=== PATIENT | female | born 1995 | race Two or more races ===

== ENCOUNTER 2021-11-28 10:15 | Emergency (ER) | payer SELFPAY ==
[2021-11-28] MEDS ORDERED: Acetaminophen 500 MG Tab PO ONE (10:54)
[2021-11-28] MEDS ORDERED: Morphine 2 MG/ML SYRINGE IVPUSH ONE (10:55)
[2021-11-28 11:01] LABS: BLOOD UREA NITROGEN,BUN 7 mg/dL (7.0-18.0); CARBON DIOXIDE,CO2 22.4 mmol/L (21.0-32.0); CHLORIDE,CL 105 mmol/L (98-107); GLUCOSE RANDOM 102 mg/dL (74-106); LIPASE 78 U/L (73-393); POTASSIUM,K 3.5 mmol/L (3.5-5.1); SODIUM,NA 141 mmol/L (136-145)
== END 2021-11-28 12:40 | disposition home or self-care (01) ==
LOC: EDBD 10:15 → MW.ED 10:15 → MERGE 10:15 → MW.ED 12:40
DX: O23.42 Unspecified infection of urinary tract in pregnancy, second trimester (principal); N39.0 Urinary tract infection, site not specified; O99.891 Other specified diseases and conditions complicating pregnancy; M54.42 Lumbago with sciatica, left side; Z3A.17 17 weeks gestation of pregnancy
CPT/HCPCS: 36415; 76815; 80053; 81001; 83690; 85025; 86900; 86901; 87086; 96374; 99284; A9270; J2270

== ENCOUNTER 2022-05-06 00:27 | Inpatient (IN) | payer SELFPAY ==
[~2022-05-06 00:27] MED LIST: Dexmedetomidine 200 MCG/2 ML SDV IV ONE; Lactated Ringers 1,000 ML IV ONE; Oxytocin/0.9 % Sodium Chloride 30 UNIT/500 ML BAG IV ONE; Ropivacaine HCl/PF 400 MG in Premix Bag 1 BAG IV ONE
[2022-05-06] MEDS ORDERED: Ibuprofen 800 MG Tab PO ONE ×3 (04:05→16:30)
[2022-05-07] MEDS ORDERED: Ibuprofen 400 MG Tab PO ONE (09:52)
[2022-05-07] MEDS ORDERED: Ibuprofen 800 MG Tab PO ONE (21:14)
== END 2022-05-07 14:38 | disposition home or self-care (01) | DRG 807 ==
LOC: MW.ZCENSUS 00:27 → UNDOADMIN 05-07 17:31 → MW.ZCENSUS 05-07 17:31
PROC: 10E0XZZ Delivery of Products of Conception, External Approach (ICD-10-PCS; principal; 2022-05-06)
PROC: 0HQ9XZZ Repair Perineum Skin, External Approach (ICD-10-PCS; 2022-05-06)
PROC: 3E0R3BZ Introduction of Anesthetic Agent into Spinal Canal, Percutaneous Approach (ICD-10-PCS; 2022-05-06)
DX: O70.0 First degree perineal laceration during delivery (principal); Z37.0 Single live birth; Z3A.38 38 weeks gestation of pregnancy
CPT/HCPCS: 51702; 59025; 59409; A9270-GY; J2590; J2795; J7120